=== PATIENT | male | born 1940 | race Caucasian/White ===

== ENCOUNTER 2020-08-17 12:00 | Outpatient (CLI) | payer MEDICARE ==
[~2020-08-17 12:00] MED LIST: ASPI-515 PO; ASPI325T80 PO; CA C1TAB60 PO; DIAZ5TAB PO; DIGO250T3 PO; DOCU-131 PO; DUTA0.5C PO; FISH OIL PO; FLEC50TA25 PO; FURO-93 PO; GLUCOSAMINE PO; HYDR-3240 PO; HYTRIN PO; METO25TA35 PO; POTA10TA5 PO; PROP225T PO; SENN-177 PO; SIMV40TA PO; TAMS-11 PO; VIT1TABL32 PO; VITAMIN D3 PO; WARF10TA43 PO; fish oil PO
== END 2020-08-17 23:59 | disposition home or self-care (01) ==
LOC: OUT 12:00
PROVIDERS: ATTEND Internal Medicine
DX: Z20.828 Contact with and (suspected) exposure to other viral communicable diseases (principal)
CPT/HCPCS: 87635

== ENCOUNTER 2020-08-21 11:28 | Day surgery (SDC) | payer MEDICARE ==
[~2020-08-21] VITALS: Ht 180.3 cm; Wt 70.6 kg
[2020-08-21] MEDS ORDERED: APIX5TAB PO (12:30)
[2020-08-21] MEDS ORDERED: CARVEDILOL PO (12:30)
[2020-08-21] MEDS ORDERED: LACTATED RINGERS 1,000 ML IV SCH (12:30)
[2020-08-21] MEDS ORDERED: CETI10TA76 PO (12:30)
[2020-08-21] MEDS ORDERED: TIOT4MIS5 IH (12:30)
[2020-08-21] MEDS ORDERED: OCCUVITE PO (12:30)
[2020-08-21] MEDS ORDERED: CHLORHEXIDINE 15 ML UDC MM ONE (12:30)
[2020-08-21] MEDS ORDERED: IPRATROPIUM NS (12:30)
[2020-08-21] MEDS ORDERED: ATOR20TA37 PO (12:30)
[2020-08-21] MEDS ORDERED: FLUO20CA23 PO (12:30)
[2020-08-21] MEDS ORDERED: CHLORHEXIDINE 15 ML UDC ONE (12:34)
[2020-08-21 12:54] VITALS: BP 106/74
[2020-08-21] MEDS ORDERED: FENTANYL PF 250 MCG/5ML ONE (12:59)
[2020-08-21] MEDS ORDERED: BUPIVACAINE/PF 0.5% ONE (13:04)
[2020-08-21] MEDS ORDERED: EPINEPHRINE 1 MG/ML, 1ML ONE (13:04)
[2020-08-21 13:09] LABS: ALBUMIN 4.2 g/dL (3.4-5.0); ANION GAP 6 mmol/L (5-15); CALCIUM 9.9 mg/dL (8.5-10.1); CHLORIDE 104 mmol/L (98-107)
[2020-08-21 13:14] LABS: ALANINE AMINOTRANSFERASE 34 U/L (12-78); ALKALINE PHOSPHATASE 79 U/L (45-117); BILIRUBIN,TOTAL 1.3 mg/dL (0.2-1.0); CREATININE 1.32 mg/dL (0.7-1.3); TOTAL PROTEIN 7.6 g/dL (6.4-8.2)
[2020-08-21] MEDS ORDERED: OXYC5TAB3 PO ×3 (13:20→14:39)
[2020-08-21] MEDS ORDERED: ROCURONIUM 10MG/ML,5ML ONE (13:26)
[2020-08-21] MEDS ORDERED: SUGAMMADEX 200 MG/2 ML IVPush ONE (13:26)
[2020-08-21] MEDS ORDERED: PROPOFOL 10 MG/ML, 20ML ONE (13:26)
[2020-08-21] MEDS ORDERED: PHENYLEPHRINE 10 MG/ML ONE (13:26)
[2020-08-21] MEDS ORDERED: ONDANSETRON 2MG/ML, 2ML ONE (13:26)
[2020-08-21] MEDS ORDERED: CEFAZOLIN 1,000 MG ONE (13:26)
[2020-08-21] MEDS ORDERED: LIDOCAINE-MPF 2% ,5ML ONE (13:26)
[2020-08-21] MEDS ORDERED: ACETAMINOPHEN 325 MG TABLET PO PRN (14:00)
[2020-08-21] MEDS ORDERED: PROMETHAZINE 12.5 MG SUPP PR PRN (14:00)
[2020-08-21] MEDS ORDERED: HALOPERIDOL 5 MG/ML IV PRN (14:00)
[2020-08-21] MEDS ORDERED: ONDANSETRON 2MG/ML, 2ML IVPush PRN (14:00)
[2020-08-21] MEDS ORDERED: HYDROmorphone 1 MG/ML, 1ML INJ IVPush PRN (14:00)
[2020-08-21] MEDS ORDERED: hydrALAzine 20 MG/ML, 1ML IV PRN (14:00)
[2020-08-21] MEDS ORDERED: LABETALOL 5MG/ML, 20ML IV PRN (14:00)
[2020-08-21] MEDS ORDERED: METOPROLOL 1 MG/ML, 5ML IV PRN (14:00)
[2020-08-21] MEDS ORDERED: OXYcodone 5 MG/5 ML ORAL.SOL UDC PO PRN (14:00)
[2020-08-21] MEDS ORDERED: METOCLOPRAMIDE 5 MG/ML, 2ML IVPush PRN (14:00)
[2020-08-21] MEDS ORDERED: EPHEDRINE 50 MG/ML, 1ML IVPush PRN (14:00)
[2020-08-21] MEDS ORDERED: DIAZEPAM 5 MG/ML, 2ML IVPush PRN (14:00)
[2020-08-21] MEDS ORDERED: FENTANYL PF 100 MCG/2ML IV PRN (14:00)
[2020-08-21] MEDS ORDERED: OXYcodone 5 MG/5 ML ORAL.SOL UDC ONE (15:24)
[2020-08-21] MEDS ORDERED: ACETAMINOPHEN 650 MG/20.3 ML UDC ONE (15:24)
== END 2020-08-21 19:25 | disposition home or self-care (01) ==
LOC: OUT 11:28
PROVIDERS: ATTEND Surgery
DX: K40.90 Unilateral inguinal hernia, without obstruction or gangrene, not specified as recurrent (principal); K41.90 Unilateral femoral hernia, without obstruction or gangrene, not specified as recurrent; D17.6 Benign lipomatous neoplasm of spermatic cord; I48.91 Unspecified atrial fibrillation; I10 Essential (primary) hypertension; E78.5 Hyperlipidemia, unspecified; Z79.01 Long term (current) use of anticoagulants; Z79.899 Other long term (current) drug therapy; Z91.040 Latex allergy status; Z95.0 Presence of cardiac pacemaker; Z95.2 Presence of prosthetic heart valve; Z98.890 Other specified postprocedural states
CPT/HCPCS: 36415; 49650; 80053; 93005; C1781; J0171; J0690; J2370; J2405; J2704; J3010; J7120

== ENCOUNTER 2020-10-15 09:31 | Outpatient (CLI) | payer MEDICARE ==
[~2020-10-15 09:31] MED LIST changes: +APIX5TAB PO; -ASPI-515 PO; +ASPI-963 PO; +ATOR20TA37 PO; +CARVEDILOL PO; +CETI10TA76 PO; +FLUO20CA23 PO; +HYDR-1067 PO; -HYDR-3240 PO; +IPRATROPIUM NS; +OCCUVITE PO; +OXYC5TAB98 PO; +TIOT4MIS5 IH
== END 2020-10-15 23:59 | disposition home or self-care (01) ==
LOC: CFH 09:31
PROVIDERS: ATTEND Internal Medicine Clinical Cardiac Electrophysiology
DX: I08.1 Rheumatic disorders of both mitral and tricuspid valves (principal); I27.20 Pulmonary hypertension, unspecified
CPT/HCPCS: 93306